=== PATIENT | male | born 1975 | race Two or more races ===

== ENCOUNTER 2019-10-15 21:17 | Emergency (ER) | payer OTHER ==
[~2019-10-15] VITALS: Ht 182.9 cm; Wt 93.4 kg
[2019-10-16] MEDS ORDERED: CEFPROZIL500 MG PO (03:56)
[2019-10-16] MEDS ORDERED: DOLOGESIC 500-1 EACH PO (03:56)
== END 2019-10-16 04:08 | disposition home or self-care (01) ==
LOC: ER 21:17
DX: B34.9 Viral infection, unspecified (principal); R50.9 Fever, unspecified